=== PATIENT | female | born 1980 | race Caucasian/White ===

== ENCOUNTER 2020-12-14 10:50 | Emergency (ER) | payer SELFPAY ==
[~2020-12-14] VITALS: Ht 139.7 cm; Wt 49.0 kg
[2020-12-14] MEDS ORDERED: ONDANSETRON 4MG ODT PO ONE (12:30)
[2020-12-14 13:35] VITALS: BP 118/75
== END 2020-12-14 13:48 | disposition home or self-care (01) ==
LOC: ER 12:28
DX: U07.1 COVID-19 (principal); R11.10 Vomiting, unspecified; J18.9 Pneumonia, unspecified organism
CPT/HCPCS: 71045; 81025; 87635; 93005; 99283; C9803; Q0162